=== PATIENT | female | born 1935 | race Caucasian/White ===

== ENCOUNTER → 2017-05-05 | Outpatient (CLI) | payer MEDICARE, OTHER ==
[~2017-05-05] MED LIST: ASPI81CH; BIOTIN10000 MC1; Bactrim Ds Tab1 EACH PO; CHLO25B; CHOL10002; CLON.2; FENO160; FISH1000; FOLI1; GABA300; Micro-K10 MEQ; Norco 5-325 Ta1 EACH PO; OXYB5; SELENIUM200 MC2; SIMV40; Synthroid112 MCG
[2017-05-05 11:59] LABS: Source, Urine Clean Catch
[2017-05-05 12:02] LABS: Bilirubin, Urine Neg (Neg); Blood, Urine 1+ (Neg); Glucose Qualitative, Urine Neg (Neg); Ketones, Urine Neg (Neg); Leukocyte Esterase, Urine Neg (Neg); Nitrite, Urine Neg (Neg); Protein, Urine Neg (Neg); Urobilinogen, Urine 2+ (Normal)
[2017-05-05 12:34] LABS: Appearance, Urine Clear (Clear); Color, Urine Yellow (P-Yellow)
[2017-05-05 12:37] LABS: Bacteria Few /hpf; Squamous Epithelial Cells Mod /hpf (Few)
== END | disposition home or self-care (01) ==
LOC: LAB HH 11:58
PROVIDERS: Internal Medicine
DX: N39.0 Urinary tract infection, site not specified (principal); M17.0 Bilateral primary osteoarthritis of knee; L89.313 Pressure ulcer of right buttock, stage 3; L89.323 Pressure ulcer of left buttock, stage 3
CPT/HCPCS: 81001; 87086

== ENCOUNTER 2017-09-16 07:48 | Day surgery (SDC) | payer MEDICARE, OTHER | END 2017-09-16 23:26 | disposition home or self-care (01) | LOC: WOUND 07:48 | DX: Z48.00 Encounter for change or removal of nonsurgical wound dressing (principal); L89.152 Pressure ulcer of sacral region, stage 2; E78.1 Pure hyperglyceridemia; I12.9 Hypertensive chronic kidney disease with stage 1 through stage 4 chronic kidney disease, or unspecified chronic kidney disease; N18.9 Chronic kidney disease, unspecified | CPT/HCPCS: G0463 ==

== ENCOUNTER 2017-09-22 09:15 | Day surgery (SDC) | payer MEDICARE, OTHER | END 2017-09-22 14:00 | disposition home or self-care (01) | LOC: WOUND 09:15 | DX: Z48.00 Encounter for change or removal of nonsurgical wound dressing (principal); L89.152 Pressure ulcer of sacral region, stage 2; E78.1 Pure hyperglyceridemia; I12.9 Hypertensive chronic kidney disease with stage 1 through stage 4 chronic kidney disease, or unspecified chronic kidney disease; N18.9 Chronic kidney disease, unspecified | CPT/HCPCS: G0463 ==

== ENCOUNTER 2017-09-29 12:22 | Day surgery (SDC) | payer MEDICARE, OTHER | END 2017-09-29 13:50 | disposition home or self-care (01) | LOC: WOUND 12:22 | DX: Z48.00 Encounter for change or removal of nonsurgical wound dressing (principal); L89.152 Pressure ulcer of sacral region, stage 2; E78.1 Pure hyperglyceridemia; I12.9 Hypertensive chronic kidney disease with stage 1 through stage 4 chronic kidney disease, or unspecified chronic kidney disease; N18.9 Chronic kidney disease, unspecified | CPT/HCPCS: G0463 ==

== ENCOUNTER 2018-07-14 10:43 | Emergency (ER) | payer MEDICARE, OTHER ==
[~2018-07-14] VITALS: Ht 165.1 cm; Wt 59.0 kg
[2018-07-14 11:16] LABS: Source, Urine Catheter
[2018-07-14 11:23] LABS: BASOPHILS ABSOLUTE AUTO 0.03 K/mm3 (0.00-0.23); BASOPHILS PERCENT AUTO 0 % (0-2); EOSINOPHILS ABSOLUTE AUTO 0.01 K/mm3 (0.00-0.68); EOSINOPHILS PERCENT AUTO 0 % (0-6); Hematocrit 51.7 % (33.0-51.0); Hemoglobin 16.5 g/dL (11.5-16.0); IMMATURE GRAN ABSOLUTE AUTO 0.03 K/mm3 (0.00-0.10); IMMATURE GRAN PERCENT AUTO 0 % (0-1); LYMPHOCYTES ABSOLUTE AUTO 1.03 K/mm3 (0.84-5.20); LYMPHOCYTES PERCENT AUTO 11 % (21-46); MONOCYTES ABSOLUTE AUTO 0.97 K/mm3 (0.16-1.47); MONOCYTES PERCENT AUTO 10 % (4-13); Mean Corpuscular HGB 28.8 pg (26.0-34.0); Mean Corpuscular HGB Conc 31.9 g/dL (31.5-36.5); Mean Corpuscular Volume 90 fL (80-100); Mean Platelet Volume 9.9 fL (9.1-12.4); NEUTROPHILS ABSOLUTE AUTO 7.62 K/mm3 (1.96-9.15); NEUTROPHILS PERCENT AUTO 79 % (41-73); Platelet Count 354 K/mm3 (150-400); RDW Coefficient Variation 14.7 % (11.7-14.2); RDW Standard Deviation 49.1 fL (35.1-46.3); Red Blood Cell Count 5.73 M/mm3 (3.80-5.20); White Blood Cell Count 9.69 K/mm3 (4.00-11.30)
[2018-07-14 11:36] LABS: Alanine Aminotransfer (ALT/SGP 32 U/L (12-78); Albumin, Blood 3.4 g/dL (3.4-5.0); Albumin/Globulin Ratio 0.9 (0.8-1.8); Alk Phos 35 U/L (50-136); Anion Gap 9 mmol/L (6-16); Aspartate Aminotrans (AST/SGOT 46 U/L (12-37); Bilirubin, Total 1.5 mg/dL (0.1-1.0); Blood Urea Nitrogen 50 mg/dL (8-24); Bun/Creatinine Ratio 53.9 (12.0-20.0); CO2, Blood 24 mmol/L (21-32); Calcium, Blood 9.5 mg/dL (8.5-10.1); Chloride, Blood 111 mmol/L (98-108); Creatinine, Blood 0.93 mg/dL (0.40-1.00); Globulin, Blood 3.8 g/dL (2.2-4.0); Glomerular Filtration Rate >60 (60-); Glucose, Blood 105 mg/dL (70-99); Potassium, Blood 3.8 mmol/L (3.5-5.5); Sodium, Blood 144 mmol/L (136-145); Total Protein, Blood 7.2 g/dL (6.4-8.2)
[2018-07-14 11:43] LABS: Blood, Urine 5+ (Neg); Glucose Qualitative, Urine Neg (Neg); Ketones, Urine 1+ (Neg); Leukocyte Esterase, Urine 2+ (Neg); Nitrite, Urine Pos (Neg); Protein, Urine 3+ (Neg); Specific Gravity, Urine 1.025 (1.003-1.022); Urobilinogen, Urine 4+ (Normal)
[2018-07-14 11:49] LABS: Bilirubin, Urine 2+ (Neg)
[2018-07-14 11:50] LABS: Appearance, Urine Cloudy (Clear); Color, Urine Amber (P-Yellow)
[2018-07-14 11:52] LABS: Amorphous Mod (0-Heavy); Bacteria Many /hpf; Squamous Epithelial Cells Mod /hpf (Few)
[2018-07-14 12:18] LABS: Creatine Kinase MB 5.8 ng/mL (0.0-3.6); Creatine Kinase MB Index 2.5 (0.0-4.0); Troponin I 0.043 ng/mL (0.000-0.040)
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
[2018-07-14] MEDS ORDERED: CEPH500 PO (14:25)
== END 2018-07-14 15:50 | disposition home or self-care (01) ==
LOC: ER 10:43
PROVIDERS: Emergency Medicine
DX: R62.7 Adult failure to thrive (principal); Z68.21 Body mass index [BMI] 21.0-21.9, adult; N39.0 Urinary tract infection, site not specified; Z79.899 Other long term (current) drug therapy; I10 Essential (primary) hypertension; Z87.891 Personal history of nicotine dependence
CPT/HCPCS: 36415; 71045; 80053; 81001; 82550; 82553; 84484; 85025; 87077; 87086; 87186; 93005; 93010; 96361; 96365; 99285-25; J0696; J7030; P9612

== ENCOUNTER 2018-07-24 10:06 | Inpatient (IN) | payer MEDICARE, OTHER ==
[~2018-07-24] VITALS: Ht 167.6 cm; Wt 57.5 kg
[~2018-07-24 10:06] MED LIST changes: +CEPH500 PO; +CLON.1 PO; -CLON.2; -FENO160; +FENO160 PO; -GABA300; +GABA300 PO; +LEVSOD100 PO; -SIMV40; -Synthroid112 MCG; +Zocor20 MG PO
[2018-07-24 10:49] LABS: BASOPHILS ABSOLUTE AUTO 0.08 K/mm3 (0.00-0.23); BASOPHILS PERCENT AUTO 1 % (0-2); EOSINOPHILS ABSOLUTE AUTO 0.24 K/mm3 (0.00-0.68); EOSINOPHILS PERCENT AUTO 2 % (0-6); Hematocrit 48.3 % (33.0-51.0); IMMATURE GRAN ABSOLUTE AUTO 0.12 K/mm3 (0.00-0.10); IMMATURE GRAN PERCENT AUTO 1 % (0-1); LYMPHOCYTES ABSOLUTE AUTO 1.55 K/mm3 (0.84-5.20); LYMPHOCYTES PERCENT AUTO 10 % (21-46); MONOCYTES ABSOLUTE AUTO 1.08 K/mm3 (0.16-1.47); MONOCYTES PERCENT AUTO 7 % (4-13); Mean Corpuscular HGB Conc 31.1 g/dL (31.5-36.5); Mean Corpuscular Volume 93 fL (80-100); NEUTROPHILS ABSOLUTE AUTO 13.17 K/mm3 (1.96-9.15); NEUTROPHILS PERCENT AUTO 81 % (41-73); Platelet Count 377 K/mm3 (150-400); RDW Coefficient Variation 14.3 % (11.7-14.2); RDW Standard Deviation 49.7 fL (35.1-46.3); Red Blood Cell Count 5.18 M/mm3 (3.80-5.20); White Blood Cell Count 16.24 K/mm3 (4.00-11.30)
[2018-07-24 11:24] LABS: Albumin, Blood 2.7 g/dL (3.4-5.0); Albumin/Globulin Ratio 0.7 (0.8-1.8); Bilirubin, Total 1.2 mg/dL (0.1-1.0); Bun/Creatinine Ratio 28.3 (12.0-20.0); Calcium, Blood 9.2 mg/dL (8.5-10.1); Creatinine, Blood 1.2 mg/dL (0.40-1.00); Globulin, Blood 3.7 g/dL (2.2-4.0); Potassium, Blood 4.1 mmol/L (3.5-5.5); Total Protein, Blood 6.4 g/dL (6.4-8.2); Troponin I 0.058 ng/mL (0.000-0.040)
[2018-07-24] MEDS ORDERED: CHOL10002 PO (12:47)
[2018-07-24] MEDS ORDERED: Aspirin EC325 MG PO (12:47)
[2018-07-24] MEDS ORDERED: FOLI1 PO (12:48)
[2018-07-24] MEDS ORDERED: BIOTIN5 MG PO (12:50)
[2018-07-24 13:14] LABS: Source, Urine Clean Catch
[2018-07-24 13:40] LABS: Bilirubin, Urine Neg (Neg); Blood, Urine 2+ (Neg); Glucose Qualitative, Urine Neg (Neg); Ketones, Urine Neg (Neg); Leukocyte Esterase, Urine 1+ (Neg); Nitrite, Urine Neg (Neg); Protein, Urine 2+ (Neg); Specific Gravity, Urine 1.025 (1.003-1.022); Urobilinogen, Urine 1+ (Normal)
[2018-07-24 14:11] LABS: Color, Urine Orange (P-Yellow)
[2018-07-24 14:12] LABS: Appearance, Urine Clear (Clear)
[2018-07-24 14:22] LABS: Bacteria Mod /hpf; Hyaline Casts 0-2 /lpf (0-2); Squamous Epithelial Cells Mod /hpf (Few); Transitional Epithelial Cells Few /hpf (0-Rare)
--- NOTE | 2018-07-24 16:22 | NUR ---
echocardiogram completed
--- NOTE | 2018-07-24 19:59 | NUR ---
SHIFT SUMMARY Assumed care of pt upon arrival from unit at 1652. [place] PC[place] bed with stand-pivot. Tolerated this well. Pt arrived wearing 2 LPM NC. Pt arrived with her daughter and Michell TAYLOR. Bed maintained in lowest position. Call light in reach. Pt denies need at this time. Bedside report given to oncClive oneal RN.
[2018-07-25] MEDS ORDERED: CHLO25B PO (02:06)
[2018-07-25] MEDS ORDERED: POTCHL10ER PO (02:08)
[2018-07-25 04:22] LABS: BASOPHILS ABSOLUTE AUTO 0.07 K/mm3 (0.00-0.23); BASOPHILS PERCENT AUTO 1 % (0-2); EOSINOPHILS ABSOLUTE AUTO 0.12 K/mm3 (0.00-0.68); EOSINOPHILS PERCENT AUTO 1 % (0-6); Hematocrit 44.4 % (33.0-51.0); Hemoglobin 13.9 g/dL (11.5-16.0); IMMATURE GRAN ABSOLUTE AUTO 0.07 K/mm3 (0.00-0.10); IMMATURE GRAN PERCENT AUTO 1 % (0-1); LYMPHOCYTES ABSOLUTE AUTO 1.55 K/mm3 (0.84-5.20); LYMPHOCYTES PERCENT AUTO 13 % (21-46); MONOCYTES ABSOLUTE AUTO 1.01 K/mm3 (0.16-1.47); MONOCYTES PERCENT AUTO 9 % (4-13); Mean Corpuscular HGB 28.5 pg (26.0-34.0); Mean Corpuscular HGB Conc 31.3 g/dL (31.5-36.5); Mean Corpuscular Volume 91 fL (80-100); NEUTROPHILS ABSOLUTE AUTO 8.95 K/mm3 (1.96-9.15); NEUTROPHILS PERCENT AUTO 76 % (41-73); Platelet Count 332 K/mm3 (150-400); RDW Coefficient Variation 14.4 % (11.7-14.2); RDW Standard Deviation 47.6 fL (35.1-46.3); Red Blood Cell Count 4.88 M/mm3 (3.80-5.20); White Blood Cell Count 11.77 K/mm3 (4.00-11.30)
[2018-07-25 04:42] LABS: Anion Gap 9 mmol/L (6-16); Blood Urea Nitrogen 34 mg/dL (8-24); Bun/Creatinine Ratio 37.6 (12.0-20.0); CO2, Blood 21 mmol/L (21-32); Calcium, Blood 8.3 mg/dL (8.5-10.1); Chloride, Blood 114 mmol/L (98-108); Creatinine, Blood 0.91 mg/dL (0.40-1.00); Glomerular Filtration Rate >60 (60-); Glucose, Blood 90 mg/dL (70-99); Potassium, Blood 4.1 mmol/L (3.5-5.5); Sodium, Blood 144 mmol/L (136-145)
--- NOTE | 2018-07-25 06:48 | NUR ---
SHIFT SUMMARY PATIENT PLEASENT AND COOPEATIVE THROUGHOUT THE NIGHT. PATIENT APPEARED TO SLEEP WELL THROUGHOUT MOST OF THE NIGHT WITH NO COMPLAINTS OF PAIN OR DISCOMFORT. PATIENT TURNED Q2H. IV FLUIDS RUNNING PER ORDERS. VITAL SIGNS CHARTED. WILL CONTINUE TO MONITOR PATIENT AND REPORT TO ONCOMING RN.
--- NOTE | 2018-07-25 20:05 | NUR ---
PM NOTE. ASSUMED CARE OF PT APROX 1900, PT IS A&O BUT FORGETFUL AT TIMES, PT WAS ADMITTED DUE TO VERY LARGE PE AND IS CURRENTLY ON LOVENOX ANTICOAGULATION THERAPY. TELE INTAC, NSR IN THE 80'S PER JAILOR, PT'S BP 143/64. NO EDEMA NOTED ON ASSESSMENT. PT'S L/C CLEAR T/O AND DIM IN THE BASES, PT IS CURRENTLY >90% ON RA. BT PRESENT AND HYPOACTIVE, ABD IS SOFT AND NONTENDER TO PALP. DAUGHTER/CAREGIVER IS AT THE BEDSIDE, CALL LIGHT IN REACH, BED ALARM ON, WILL CONTINUE TO MONITOR.
--- NOTE | 2018-07-25 20:19 | NUR ---
SHIFT SUMMARY No acute changes since shift assessment. Dr Sanders spoke to the pt's daughter over the phone to give results of Chest CT and discuss plan of care. Pt titrated to room air and tolerated well. No events per telemetry.
--- NOTE | 2018-07-26 00:35 | NUR ---
PT UPDATE... DURING MIDNIGHT VITALS PT'S O2 SATS WERE FOUND TO BE AT 86-88% ON RA, 2L NC WAS PLACED ON THE PT AND HER SATS CAME UP TO 94%. WILL CONTINUE TO MONITOR.
[2018-07-26 04:59] LABS: BASOPHILS ABSOLUTE AUTO 0.08 K/mm3 (0.00-0.23); BASOPHILS PERCENT AUTO 1 % (0-2); EOSINOPHILS ABSOLUTE AUTO 0.18 K/mm3 (0.00-0.68); EOSINOPHILS PERCENT AUTO 2 % (0-6); Hematocrit 45.1 % (33.0-51.0); Hemoglobin 14.2 g/dL (11.5-16.0); IMMATURE GRAN ABSOLUTE AUTO 0.05 K/mm3 (0.00-0.10); IMMATURE GRAN PERCENT AUTO 1 % (0-1); LYMPHOCYTES ABSOLUTE AUTO 1.76 K/mm3 (0.84-5.20); LYMPHOCYTES PERCENT AUTO 17 % (21-46); MONOCYTES ABSOLUTE AUTO 0.84 K/mm3 (0.16-1.47); MONOCYTES PERCENT AUTO 8 % (4-13); Mean Corpuscular HGB Conc 31.5 g/dL (31.5-36.5); Mean Corpuscular Volume 92 fL (80-100); Mean Platelet Volume 9.7 fL (9.1-12.4); NEUTROPHILS ABSOLUTE AUTO 7.74 K/mm3 (1.96-9.15); NEUTROPHILS PERCENT AUTO 73 % (41-73); Platelet Count 365 K/mm3 (150-400); RDW Coefficient Variation 14.3 % (11.7-14.2); RDW Standard Deviation 48.3 fL (35.1-46.3); White Blood Cell Count 10.65 K/mm3 (4.00-11.30)
--- NOTE | 2018-07-26 07:49 | NUR ---
SHIFT SUMMARY. NO ACUTE CHANGES NOTED THIS SHIFT. PT'S VS HAVE BEEN STABLE, PT DENIES ANY CHEST PAIN/PRESSURE, N/V OR SOB. PT DID NEED 2L NC DURING SLEEP, PT TOLERATED THIS WELL. PT WAS INCNONT OF URINE SEVERAL TIMES THIS SHIFT. CALL LIGHT IN REACH, BED IS LOCKED AND LOW WILL CONTINUE TO MONITOR UNTIL REPORT IS GIVEN TO ONCOMING RN.
--- NOTE | 2018-07-26 17:00 | NUR ---
SHIFT SUMMARY No acute changes to shift assessment. Pt has had several visitors throughout the day. Pt on room air. Medical floor status. Report given to Chester TAYLOR, who assumed care of pt at 1645.
--- NOTE | 2018-07-26 20:00 | NUR ---
RECEIVED HAND OFF FROM PCU NURSING USING SBAR. TRANSPORTED TO ROOM VIA BED. LYING IN SEMI FOWLERS WITH DAUGHTER AT BEDSIDE. AAO X3, KARIMI, FOLLOWS ALL COMMANDS. INTERMITTENT CONFUSION REPORTED FROM PCU NURSE BASELINE. ORIENTED TO ROOM, CALL SYSTEM, AND POC, VOICES UNDERSTANDING. RESPIRATIONS EVEN AND UNLABOREDON ROOM AIR. LUNG SOUNDS CLEAR BILATERALLY. ABDOMEN SOFT AND NONDISTENDED. BOWEL SOUNDS PRESENT IN ALL QUADS. REPORTED CONTINENT OF BOWEL AND BLADDER, USES BSC WITH DIAPER ON IN CASE OF URGENCY. DEINES PAIN, DISCOMFORT, OR FURTHER NEEDS AT THIS TIME. SAFETY MEASURES IN PLACE. WILL CONTINUE TO MONITOR.
--- NOTE | 2018-07-27 06:42 | NUR ---
LYING IN SEMI FOWLERS WITH EYES CLOSED. HAS HAD NO C/O PAIN THIS SHIFT. TURNED Q 2HRS, HAS HAD 2 INCONTINENT EPISODES, EVEN THOUGH IT WAS REITERATED TO CALL FOR ASSISTANCE TO BSC. DENIES FURTHER NEEDS OR WANTS AT THIS TIME. SAFETY MEASURES IN PLACE. WILL GIVE HAND OFF TO ONCOMING SHIFT USING SBAR.
[2018-07-27] MEDS ORDERED: XARELTO15 MG PO (11:52)
[2018-07-27] MEDS ORDERED: XARELTO20 MG PO (11:54)
--- NOTE | 2018-07-27 13:30 | NUR ---
PATIENT D/C'D HOME WITH DAUGHTER AT THIS TIME; BOTH STATE UNDERSTANDING OF MEDS, BLOOD THINNER PRECAUTIONS, F/U APPT, ETC. NO ACUTE CHANGES OR C/O.
== END 2018-07-27 13:15 | disposition home or self-care (01) | DRG 176 ==
LOC: ER 10:06 → PCU 10:07 → SURS 07-26 19:51
PROVIDERS: Emergency Medicine; ADMIT Hospitalist
DX: I26.99 Other pulmonary embolism without acute cor pulmonale (principal); N39.0 Urinary tract infection, site not specified; I24.8 Other forms of acute ischemic heart disease; N17.9 Acute kidney failure, unspecified; Z66 Do not resuscitate; I10 Essential (primary) hypertension; E03.9 Hypothyroidism, unspecified; E86.0 Dehydration; E78.5 Hyperlipidemia, unspecified; I13.10 Hypertensive heart and chronic kidney disease without heart failure, with stage 1 through stage 4 chronic kidney disease, or unspecified chronic kidney disease; N18.1 Chronic kidney disease, stage 1; Z87.891 Personal history of nicotine dependence
CPT/HCPCS: 36415; 70450; 71046; 71260; 80048; 80053; 81001; 82550; 83605; 83880; 84484; 85025; 87086; 93005; 93010; 93306; 96361; 96365; 96372; 96375; 97110; 97116; 97162; 97165; 97530; 99285-25; G0378; J0696; J1650; J1953; J7030; J7050; P9612; Q9967

== ENCOUNTER → 2018-08-08 | Outpatient (CLI) | payer MEDICARE, OTHER ==
[~2018-08-08] MED LIST changes: +Aspirin EC325 MG PO; +BIOTIN5 MG PO; +CHLO25B PO; +CHOL10002 PO; +FOLI1 PO; +POTCHL10ER PO; +XARELTO15 MG PO; +XARELTO20 MG PO
[2018-08-08 09:41] LABS: Source, Urine Clean Catch
[2018-08-08 13:03] LABS: Bilirubin, Urine Neg (Neg); Blood, Urine 2+ (Neg); Glucose Qualitative, Urine Neg (Neg); Ketones, Urine Neg (Neg); Leukocyte Esterase, Urine 1+ (Neg); Nitrite, Urine Neg (Neg); Protein, Urine Neg (Neg); Specific Gravity, Urine 1.015 (1.003-1.022); Urobilinogen, Urine 2+ (Normal); pH, Urine 6.5 (5.0-8.0)
[2018-08-08 13:39] LABS: Appearance, Urine Hazy (Clear); Color, Urine Yellow (P-Yellow)
[2018-08-08 13:41] LABS: Amorphous Light (0-Heavy); Bacteria Few /hpf; Mucus Light (0-Heavy); Squamous Epithelial Cells Few /hpf (Few); Yeast/Fungi Urine Few /hpf
== END | disposition home or self-care (01) ==
LOC: LAB SHORT 09:25 → LAB 09:25
PROVIDERS: Internal Medicine
DX: R30.0 Dysuria (principal)
CPT/HCPCS: 81001